=== PATIENT | female | born 1975 | race Caucasian/White ===

== ENCOUNTER 2024-09-06 21:17 | Emergency (ER) | payer OTHER ==
[2024-09-06 21:29] VITALS: BP 156/83
[2024-09-06 21:31] VITALS: BP 148/91
[2024-09-06] MEDS ORDERED: Acetaminophen 300 MG/Codeine 30 MG/COMBO PO ONE (21:40)
[2024-09-06] MEDS ORDERED: LISINOPRIL20 M1 PO (21:40)
[2024-09-06] MEDS ORDERED: DEXAMETHASONE SOD. PHOSPHATE 10 MG/ML VIAL IM ONE (21:40)
[2024-09-06] MEDS ORDERED: CYCLOBENZAPRINE HCL 5 MG TAB PO ONE (21:40)
[2024-09-06] MEDS ORDERED: PROZAC10 M2 (21:40)
[2024-09-06 21:46] VITALS: BP 154/101
[2024-09-06] MEDS ORDERED: ORPHENADRINE100 MG PO (21:46)
[2024-09-06] MEDS ORDERED: TRAMADOL HYDROC50 M1 PO ×2 (21:46→21:48)
[2024-09-06] MEDS ORDERED: TYLENOL # 31 TA1 PO (21:56)
[2024-09-06 21:58] VITALS: BP 154/101
== END 2024-09-06 21:58 | disposition home or self-care (01) | DRG 552 ==
LOC: ED 21:17
DX: M54.50 Low back pain, unspecified (principal); G89.29 Other chronic pain; I10 Essential (primary) hypertension

== ENCOUNTER 2024-09-18 13:38 | Emergency (ER) | payer OTHER ==
[~2024-09-18] VITALS: Ht 172.7 cm; Wt 105.5 kg
[~2024-09-18 13:38] MED LIST: LISINOPRIL20 M1 PO; ORPHENADRINE100 MG PO; PROZAC10 M2; TRAMADOL HYDROC50 M1 PO; TYLENOL # 31 TA1 PO
[2024-09-18 13:53] VITALS: BP 120/83
[2024-09-18] MEDS ORDERED: HYDROcodone 5 MG/Acetaminophen 325 MG/COMBO PO ONE (13:55)
[2024-09-18 14:00] VITALS: BP 125/72
[2024-09-18] MEDS ORDERED: HYDROCO/APAP1 TA9 PO (14:11)
[2024-09-18 14:16] VITALS: BP 128/83
[2024-09-18 14:31] VITALS: BP 95/47
[2024-09-18 14:45] VITALS: BP 106/70
[2024-09-18 15:07] VITALS: BP 123/65
== END 2024-09-18 15:14 | disposition home or self-care (01) | DRG 552 ==
LOC: ED 13:38
DX: M54.50 Low back pain, unspecified (principal); G89.29 Other chronic pain; I10 Essential (primary) hypertension

== ENCOUNTER 2024-12-21 17:56 | Emergency (ER) | payer OTHER ==
[~2024-12-21] VITALS: Ht 172.7 cm; Wt 99.0 kg
[~2024-12-21 17:56] MED LIST changes: +HYDROCO/APAP1 TA9 PO
[2024-12-21] MEDS ORDERED: KETOROLAC TROMETHAMINE 30 MG/ML SDV IM ONE (18:15)
[2024-12-21] MEDS ORDERED: METHOCARBAMOL 500 MG/TAB PO ONE (18:15)
[2024-12-21] MEDS ORDERED: oxyCODONE 5MG/ ACETAMINOPHEN 325MG TAB PO ONE (18:15)
[2024-12-21 18:21] VITALS: BP 115/80
[2024-12-21] MEDS ORDERED: METHOCARBAMOL500 MG PO (18:27)
[2024-12-21] MEDS ORDERED: PREDNISONE50 MG PO (18:27)
[2024-12-21 18:30] VITALS: BP 104/70
== END 2024-12-21 18:33 | disposition home or self-care (01) | DRG 552 ==
LOC: ED 17:56
DX: M54.50 Low back pain, unspecified (principal); I10 Essential (primary) hypertension; J45.909 Unspecified asthma, uncomplicated